=== PATIENT | female | born 1950 | race Caucasian/White ===

== ENCOUNTER 2023-01-27 13:59 | Inpatient (IN) | payer MEDICARE ==
[2023-01-27 14:43] LABS: Bilirubin, Total 0.5 mg/dL (0.2-1.2); Calc. Creatinine Clearance 0 mL/min (70-130); Carbon Dioxide 20 mmol/L (23-31)
[2023-01-27 14:52] LABS: Hemoglobin 14.4 g/dL (12.0-15.5); Mean Corpuscular HGB CONC 34.5 g/dL (32.0-36.0); Mean Corpuscular Hemoglobin 31.8 pg (27.0-33.0); Mean Corpuscular Volume 92.1 fl (81.6-98.3); Platelet Count 388 10x3/uL (150-450); RBC Distribution Width 13.1 % (11.5-14.5); Red Blood Cell (RBC) Count 4.53 10x6/uL (3.90-5.03); White Blood Cell (WBC) Count 21.3 10x3/uL (3.5-10.5)
[2023-01-27] MEDS ORDERED: Cefepime 2 GM VIAL ONE (14:56)
[2023-01-27] MEDS ORDERED: Azithromycin 500 MG VIAL ONE (14:56)
[2023-01-27] MEDS ORDERED: methylPREDNISolone Sod Succ/PF 125 MG/2 ML VIAL ONE (14:56)
[2023-01-27 15:04] LABS: BHCG - Serum Negative (NEGATIVE); Pregs Control Background? CLEAR/WHITE (CLR/WHITE); Pregs Control Bar Appear? YES (CONTROL BAR)
[2023-01-27 15:07] LABS: SARS-CoV-2 NAA Rapid Test Not Detected (NotDetected)
[2023-01-27 15:08] LABS: Acetaminophen Less than 10.0 mcg/mL (10.0-30.0); Alcohol Less than 10 mg/dL (Less than 10); Salicylate Less than 8.0 mg/dL (15.0-30.0)
[2023-01-27 15:12] LABS: MDiff Complete? YES; Manual Diff?? YES
[2023-01-27 15:16] LABS: Band 7 % (5-11); Eosinophils 1 % (0-10); Lymphocytes 11 % (21-51); Monocytes 6 % (0-10); Neutrophil 75 % (42-75)
[2023-01-27 15:17] LABS: Platelet Morphology Comment Appears Adequate; RBC Morphology Normal
[2023-01-27 15:51] LABS: ALT (SGPT) 18 U/L (8-55); AST (SGOT) 17 U/L (5-34); Albumin 3.9 g/dL (3.4-4.8); Alkaline Phosphatase 102 U/L (40-110); Anion Gap 21 mmol/L (10-20); BUN (Urea Nitrogen) 8 mg/dL (9.8-20.1); Calcium 8.9 mg/dL (7.8-10.44); Chloride 95 mmol/L (98-107); Estimated GFR 82; Globulin 3.2 g/dL (2.4-3.5); Glucose 113 mg/dL (83-110); Potassium 4.4 mmol/L (3.5-5.1); Protein, Total 7.1 g/dL (5.8-8.1); Sodium 132 mmol/L (136-145)
[2023-01-27] MEDS ORDERED: Ondansetron PF 4 MG/2 ML Vial IVP PRN (16:02)
[2023-01-27] MEDS ORDERED: Ondansetron ODT 4 MG TAB PO PRN (16:02)
[2023-01-27] MEDS ORDERED: Ipratropium/Albuterol 3 ML NEB NEB PRN (16:24)
[2023-01-27 17:27] VITALS: BMI 21.9
[2023-01-27 17:39] LABS: Lactic Acid 1.7 mmol/L (0.5-2.2)
[2023-01-27] MEDS: Sodium Chloride 0.9% 1,000 ML IV SCH (17:46)
[2023-01-27] MEDS ORDERED: Nicotine 14 MG PATCH TD SCH (18:00)
[2023-01-28] MEDS: methylPREDNISolone Sod Succ 40 MG VIAL IVP SCH ×2 (00:19→06:33)
[2023-01-28] MEDS: Acetaminophen 325 MG TAB PO PRN (00:28)
[2023-01-28 04:26] LABS: #Monocytes 0.2 10x3/uL (0.0-1.1); %Basophils 0.2 % (0.0-2.0); %Lymphocytes 7.5 % (18.0-47.0); %Monocytes 1.3 % (0.0-10.0); %Neutrophils 90.6 % (40.0-75.0); Hemoglobin 12.3 g/dL (12.0-15.5); Mean Corpuscular HGB CONC 33.6 g/dL (32.0-36.0); Mean Corpuscular Hemoglobin 31.5 pg (27.0-33.0); Mean Corpuscular Volume 93.6 fl (81.6-98.3); Mean Platelet Volume 8.8 fl (7.4-10.4); Platelet Count 343 10x3/uL (150-450); RBC Distribution Width 13.3 % (11.5-14.5); Red Blood Cell (RBC) Count 3.91 10x6/uL (3.90-5.03); White Blood Cell (WBC) Count 13.2 10x3/uL (3.5-10.5)
[2023-01-28 04:40] LABS: Anion Gap 14 mmol/L (10-20); BUN (Urea Nitrogen) 15 mg/dL (9.8-20.1); Calc. Creatinine Clearance 73 mL/min (70-130); Carbon Dioxide 23 mmol/L (23-31); Chloride 102 mmol/L (98-107); Estimated GFR 92; Glucose 145 mg/dL (83-110); Potassium 3.9 mmol/L (3.5-5.1); Sodium 135 mmol/L (136-145)
[2023-01-28] MEDS: Sodium Chloride 0.9% 1,000 ML IV SCH (06:35)
[2023-01-28] MEDS: Aspirin Chewable 81 MG TAB PO SCH (09:01)
[2023-01-28] MEDS ORDERED: Ipratropium/Albuterol 3 ML NEB NEB SCH (10:30)
[2023-01-28] MEDS ORDERED: methylPREDNISolone Sod Succ 40 MG VIAL IVP SCH (14:00)
[2023-01-28] MEDS: Ipratropium/Albuterol 3 ML NEB NEB SCH ×2 (14:24→19:15)
[2023-01-28] MEDS: cefTRIAXone\\ROCEPHIN 1 GM in Sodium Chloride 0.9% 100 ML IVPB SCH (14:36)
[2023-01-28] MEDS ORDERED: Nicotine 14 MG PATCH TD PRN (15:10)
[2023-01-28] MEDS: Azithromycin 500 MG in Sodium Chloride 0.9% 250 ML 250 ML IVPB SCH (17:19)
[2023-01-28] MEDS ORDERED: Sodium Chloride 0.9% 1,000 ML IV SCH (19:04)
[2023-01-28] MEDS: Guaifenesin DM 100-10/5 ML UDCUP PO PRN (21:41)
[2023-01-29 05:04] LABS: Anion Gap 16 mmol/L (10-20); BUN (Urea Nitrogen) 19 mg/dL (9.8-20.1); Calc. Creatinine Clearance 77 mL/min (70-130); Calcium 8.6 mg/dL (7.8-10.44); Carbon Dioxide 20 mmol/L (23-31); Chloride 106 mmol/L (98-107); Estimated GFR 94; Glucose 108 mg/dL (83-110); Potassium 3.9 mmol/L (3.5-5.1); Sodium 138 mmol/L (136-145)
[2023-01-29 05:15] LABS: Hemoglobin 11.1 g/dL (12.0-15.5); Mean Corpuscular HGB CONC 34.6 g/dL (32.0-36.0); Mean Corpuscular Hemoglobin 31.7 pg (27.0-33.0); Mean Corpuscular Volume 91.7 fl (81.6-98.3); Mean Platelet Volume 8.9 fl (7.4-10.4); Platelet Count 367 10x3/uL (150-450); RBC Distribution Width 13.3 % (11.5-14.5); White Blood Cell (WBC) Count 25.2 10x3/uL (3.5-10.5)
[2023-01-29 05:16] LABS: MDiff Complete? YES
[2023-01-29 06:48] LABS: Band 1 % (5-11); Lymphocytes 5 % (21-51); Monocytes 5 % (0-10); Neutrophil 89 % (42-75)
[2023-01-29 06:52] LABS: Crenated RBC SLIGHT = 1-5 cells (100X) (None Seen); Ovalocytes SLIGHT = 2-5 cells (100X) (0-1/hpf); Schistocytes SLIGHT = 2-5 cells (100X) (0-1/hpf)
[2023-01-29 06:53] LABS: Platelet Morphology Comment Appears Adequate
[2023-01-29] MEDS ORDERED: Guaifenesin DM 100-10/5 ML UDCUP ONE ×2 (08:03)
[2023-01-29] MEDS: Guaifenesin DM 100-10/5 ML UDCUP PO PRN ×3 (08:43→21:29)
[2023-01-29] MEDS: Acetaminophen 325 MG TAB PO PRN (08:43)
[2023-01-29] MEDS: Aspirin Chewable 81 MG TAB PO SCH (08:44)
[2023-01-29] MEDS: Ipratropium/Albuterol 3 ML NEB NEB SCH ×4 (09:15→18:50)
[2023-01-29] MEDS: cefTRIAXone\\ROCEPHIN 1 GM in Sodium Chloride 0.9% 100 ML IVPB SCH (15:40)
[2023-01-29] MEDS: Azithromycin 500 MG in Sodium Chloride 0.9% 250 ML 250 ML IVPB SCH (18:00)
[2023-01-29] MEDS ORDERED: Heparin 5,000 UNITS/ML VIAL SC SCH (21:00)
[2023-01-30] MEDS: Ipratropium/Albuterol 3 ML NEB NEB SCH ×4 (01:32→20:00)
[2023-01-30 06:09] LABS: #Eosinphils 0.1 10x3/uL (0.0-0.5); #Monocytes 0.7 10x3/uL (0.0-1.1); #Neutrophils 10.5 10x3/uL (1.5-8.4); %Basophils 0.3 % (0.0-2.0); %Eosinophils 0.4 % (0.0-6.0); %Lymphocytes 20.7 % (18.0-47.0); %Monocytes 5.1 % (0.0-10.0); %Neutrophils 72.1 % (40.0-75.0); Hemoglobin 11.2 g/dL (12.0-15.5); Mean Corpuscular HGB CONC 34.1 g/dL (32.0-36.0); Mean Corpuscular Hemoglobin 31.8 pg (27.0-33.0); Mean Corpuscular Volume 93.2 fl (81.6-98.3); Platelet Count 386 10x3/uL (150-450); RBC Distribution Width 13.7 % (11.5-14.5); Red Blood Cell (RBC) Count 3.52 10x6/uL (3.90-5.03); White Blood Cell (WBC) Count 14.6 10x3/uL (3.5-10.5)
[2023-01-30 06:34] LABS: Anion Gap 14 mmol/L (10-20); BUN (Urea Nitrogen) 10 mg/dL (9.8-20.1); Calc. Creatinine Clearance 79 mL/min (70-130); Calcium 8.5 mg/dL (7.8-10.44); Carbon Dioxide 24 mmol/L (23-31); Chloride 103 mmol/L (98-107); Estimated GFR 94; Glucose 81 mg/dL (83-110); Magnesium 1.8 mg/dL (1.6-2.6); Potassium 3.7 mmol/L (3.5-5.1); Sodium 137 mmol/L (136-145)
[2023-01-30] MEDS: Aspirin Chewable 81 MG TAB PO SCH (09:08)
[2023-01-30] MEDS ORDERED: Electrolyte Replacement Protocol 1 EACH FS SCH (09:30)
[2023-01-30] MEDS ORDERED: Magnesium 2 GM/50 ML(in water) 2 GM in Premix Bag 1 BAG IVPB SCH (09:30)
[2023-01-30] MEDS ORDERED: Benzonatate 100 MG CAP PO PRN (09:36)
[2023-01-30] MEDS ORDERED: predniSONE 20 MG TAB PO SCH ×2 (10:00→12:00)
[2023-01-30] MEDS: Acetaminophen 325 MG TAB PO PRN (11:53)
[2023-01-30] MEDS ORDERED: Azithromycin 250 MG TAB PO SCH (17:00)
[2023-01-30] MEDS: Guaifenesin DM 100-10/5 ML UDCUP PO SCH (17:31)
[2023-01-30] MEDS: cefTRIAXone\\ROCEPHIN 1 GM in Sodium Chloride 0.9% 100 ML IVPB SCH (17:32)
[2023-01-31] MEDS: Ipratropium/Albuterol 3 ML NEB NEB SCH ×3 (00:42→09:40)
[2023-01-31] MEDS: Guaifenesin DM 100-10/5 ML UDCUP PO SCH ×2 (06:14→08:37)
[2023-01-31] MEDS ORDERED: predniSONE 20 MG TAB PO SCH (08:00)
[2023-01-31] MEDS: Aspirin Chewable 81 MG TAB PO SCH (08:36)
[2023-01-31 09:05] VITALS: BP 132/72; TEMP 98.4
[2023-01-31] MEDS ORDERED: Azithromycin 250 MG TAB PO SCH (10:00)
== END 2023-01-31 11:29 | disposition home or self-care (01) | DRG 871 ==
LOC: CSHERS 13:59 → CSHTELE 16:52
PROVIDERS: ADMIT Internal Medicine; ATTEND Internal Medicine
DX: A41.9 Sepsis, unspecified organism (principal); J18.9 Pneumonia, unspecified organism; J44.0 Chronic obstructive pulmonary disease with (acute) lower respiratory infection; J44.1 Chronic obstructive pulmonary disease with (acute) exacerbation; E87.20 Acidosis, unspecified; E87.1 Hypo-osmolality and hyponatremia; Z20.822 Contact with and (suspected) exposure to COVID-19; F41.9 Anxiety disorder, unspecified; E83.42 Hypomagnesemia; F17.210 Nicotine dependence, cigarettes, uncomplicated; F43.10 Post-traumatic stress disorder, unspecified; F32.A Depression, unspecified; M19.90 Unspecified osteoarthritis, unspecified site; Z90.710 Acquired absence of both cervix and uterus; Z88.2 Allergy status to sulfonamides; Z71.6 Tobacco abuse counseling; Z91.09 Other allergy status, other than to drugs and biological substances; D53.9 Nutritional anemia, unspecified
CPT/HCPCS: 36415; 71045; 80048; 80053; 80307; 83605; 83735; 83880; 84145; 84484; 84703; 85025; 87040; 93005; 94640; 94760; 94762; 96365; 96367; 96375; J0456; J0692; J0696; J1650; J2920; J2930; J3475; J3490; J7050; J7512; J7620